=== PATIENT | male | born 2000 | race Caucasian/White ===

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

== ENCOUNTER 2018-04-19 22:18 | Emergency (ER) | payer OTHER ==
[~2018-04-19] VITALS: Ht 167.6 cm; Wt 65.8 kg
--- NOTE | 2018-04-20 00:10 | NUR ---
PT BBSELF FROM HOME C/C OF HEAD/TOOTH PAIN 4/10 X TODAY NON RADIATING W/ DIZZINESS AND NECK STIFFNESS. PT IS AAOX4. SKIN WNL. RESP EVEN AND UNLABORED. NO S/S OF ACUTE DISTRESS NOTED. PT PLACED ON MONITOR AND POX. PT SAFETY IN PLACE. AWAITING MD FOR EVAL.
[2018-04-20] MEDS ORDERED: ACETAMINOPHEN ES 500 MG TABLET PO ONE (00:30)
[2018-04-20] MEDS ORDERED: IV NS 0.9% 1,000 ML BAG IV ONE (00:30)
[2018-04-20] MEDS ORDERED: PENICILLIN V POTASSIUM 500 MG TABLET PO ONE ×2 (00:30→00:31)
[2018-04-20] MEDS ORDERED: ACETAMINOPHEN ES 500 MG TABLET ONE (00:31)
[2018-04-20 00:40] LABS: BASOPHILS % (AUTO) 0.2 % (0.0-2.0); EOSINOPHILS % (AUTO) 0.5 % (0.0-6.0); HEMATOCRIT 51 % (39-51); LYMPHOCYTES % (AUTO) 20.8 % (20.0-44.0); MEAN CORPUSCULAR HEMOGLOBIN 31 PG (26.0-33.0); MEAN CORPUSCULAR HGB CONC 34 g/dl (31.0-36.0); MEAN CORPUSCULAR VOLUME 93 fL (80-96); MONOCYTES # (AUTO) 0.7 /CMM (0.1-1.30); MONOCYTES % (AUTO) 7.1 % (2.0-12.0); NEUTROPHILS # (AUTO) 6.9 /CMM (1.8-8.9); NEUTROPHILS % (AUTO) 71.4 % (43.0-81.0); PLATELET COUNT (AUTO) 147 /CMM (150-450); RDW COEFFICIENT OF VARIATION 13.4 (11.5-15.0); RED BLOOD CELL COUNT(AUTO) 5.47 MIL/uL (4.5-6.0); WHITE BLOOD COUNT (AUTO) 9.7 K/uL (4.3-11.0)
[2018-04-20 00:47] LABS: CALCIUM, SERUM 9.1 mg/dL (8.5-10.1); POTASSIUM 3.2 mmol/L (3.5-5.1)
[2018-04-20 01:47] VITALS: BP 126/80
--- NOTE | 2018-04-20 01:47 | NUR ---
Patient discharged to home in stable condition. Written and verbal after care instructions given. Patient verbalizes understanding of instruction.IV removed. Catheter intact and site benign. Pressure and 4x4 applied to site. No bleeding noted. NO S/S DISTRESS NOTED UPON DISCHARGE
== END 2018-04-20 01:49 | disposition home or self-care (01) ==
LOC: ER 22:20
DX: R55 Syncope and collapse (principal); F41.9 Anxiety disorder, unspecified; R51 Headache; K08.89 Other specified disorders of teeth and supporting structures; F17.200 Nicotine dependence, unspecified, uncomplicated
CPT/HCPCS: 36415; 80048; 85025; 93005; 96360; 99285; 99406; A4606; J7030; Z7610

== ENCOUNTER 2019-06-25 18:24 | Emergency (ER) | payer OTHER ==
[~2019-06-25] VITALS: Ht 165.1 cm; Wt 88.9 kg
--- NOTE | 2019-06-25 18:30 | NUR ---
Pt came into the ed c/o "Chest cold/congestion xcouple weeks today felt nauseous and SO. Pt AAOX4, VSS, BREATHING EVEN AND UNLABORED W/ NO ACUTE DISTRESS NOTED. Pt connected to the monitor.
[2019-06-25] MEDS ORDERED: LORAZEPAM 1 MG TABLET ONE (18:43)
--- NOTE | 2019-06-25 18:53 | NUR ---
PT REFUSED TO TAKE 1 MG ATIVAN TABLET AND ASKED ER , DR. KAPADIA IF HE COULD TAKE 0.5 MG. ATIVAN GIVEN 0.[address]'S ORDER
[2019-06-25] MEDS ORDERED: LORAZEPAM 1 MG TABLET PO ONE (19:00)
[2019-06-25 19:24] VITALS: BP 123/80
--- NOTE | 2019-06-25 19:24 | NUR ---
Patient discharged to home in stable condition. Written and verbal after care instructions given. Patient verbalizes understanding of instruction.
== END 2019-06-25 19:25 | disposition home or self-care (01) ==
LOC: ER 18:24
DX: F41.9 Anxiety disorder, unspecified (principal); F17.200 Nicotine dependence, unspecified, uncomplicated

== ENCOUNTER 2019-08-26 20:46 | Emergency (ER) | payer OTHER ==
[~2019-08-26] VITALS: Ht 167.6 cm; Wt 90.7 kg
[2019-08-26 21:58] VITALS: BP 148/91
== END 2019-08-26 21:58 | disposition home or self-care (01) ==
LOC: ER 20:48
DX: F41.9 Anxiety disorder, unspecified (principal); F17.200 Nicotine dependence, unspecified, uncomplicated

== ENCOUNTER 2020-02-16 04:37 | Emergency (ER) | payer OTHER ==
[~2020-02-16] VITALS: Ht 162.6 cm; Wt 86.2 kg
[2020-02-16 04:44] VITALS: BP 121/75
== END 2020-02-16 05:30 | disposition home or self-care (01) ==
LOC: ER 04:37
DX: R20.2 Paresthesia of skin (principal); M25.532 Pain in left wrist; M25.531 Pain in right wrist

== ENCOUNTER 2020-12-04 15:44 | Emergency (ER) | payer OTHER ==
[~2020-12-04] VITALS: Ht 167.6 cm; Wt 86.2 kg
--- NOTE | 2020-12-04 15:44 | NUR ---
PT BIB SELF C/O BLOOD IN THE STOOL STARTED YESTERDAY. PT IS AAOX4, NOT IN RESPIRATORY DISTRESS, V/S STABLE, KEPT RESTED AND COMFORTABLE. WILL CONTINUE TO MONITOR.
--- NOTE | 2020-12-04 17:27 | NUR ---
HUGH GROSS AT BEDSIDE FOR EVAL.
--- NOTE | 2020-12-04 17:50 | NUR ---
IV LINE ESTABLISHED BLOOD DRAWN AND SENT TO LAB.
[2020-12-04 18:12] LABS: OCCULT BLOOD STOOL NEGATIVE (NEGATIVE)
[2020-12-04 18:13] LABS: BASOPHILS % (AUTO) 0.2 % (0.0-2.0); EOSINOPHILS % (AUTO) 0.2 % (0.0-6.0); HEMATOCRIT 50 % (39-51); HEMOGLOBIN 16.4 g/dL (13.5-17.5); LYMPHOCYTES # (AUTO) 1.7 /CMM (0.8-4.8); LYMPHOCYTES % (AUTO) 18.9 % (20.0-44.0); MEAN CORPUSCULAR HGB CONC 33 g/dl (31.0-36.0); MEAN CORPUSCULAR VOLUME 92 fL (80-96); MONOCYTES # (AUTO) 0.5 /CMM (0.1-1.30); MONOCYTES % (AUTO) 5.5 % (2.0-12.0); NEUTROPHILS # (AUTO) 6.7 /CMM (1.8-8.9); NEUTROPHILS % (AUTO) 75.2 % (43.0-81.0); PLATELET COUNT (AUTO) 188 /CMM (150-450); RED BLOOD CELL COUNT(AUTO) 5.39 MIL/uL (4.5-6.0); WHITE BLOOD COUNT (AUTO) 8.9 K/uL (4.3-11.0)
[2020-12-04] MEDS ORDERED: IOHEXOL-300 100 ML VIAL IV ONE (18:26)
[2020-12-04 18:27] LABS: CALCIUM, SERUM 9.6 mg/dL (8.5-10.1); CREATININE 0.9 mg/dL (0.6-1.3); POTASSIUM 3.8 mmol/L (3.5-5.1)
[2020-12-04] MEDS ORDERED: IV NS 0.9% 250 ML IV ONE (18:27)
[2020-12-04 18:32] LABS: ALBUMIN 4.2 g/dL (3.4-5.0); BILIRUBIN,DIRECT 0.1 mg/dL (0.0-0.2); BILIRUBIN,TOTAL 0.4 mg/dL (0.2-1.0); TOTAL PROTEIN, SERUM 7.9 g/dL (6.4-8.2)
--- NOTE | 2020-12-04 18:50 | NUR ---
PT IS BACK FROM THE CT SCAN.
--- NOTE | 2020-12-04 19:55 | NUR ---
URINE COLLECTED AND SENT TO LAB
[2020-12-04 20:51] LABS: BILIRUBIN,URINE NEGATIVE (NEGATIVE); COLOR,URINE YELLOW (YELLOW); LEUKOCYTE ESTERASE ,URINE NEGATIVE (NEGATIVE); NITRITE, URINE NEGATIVE (NEGATIVE); PROTEIN,URINE NEGATIVE (NEGATIVE); UGLUCOSE NEGATIVE (NEGATIVE); UROBILINOGEN,URINE 0.2 EU/dL (0.2)
[2020-12-04] MEDS ORDERED: HYDR25SU33 RC ×2 (20:57→20:58)
[2020-12-04 21:08] VITALS: BP 121/75
--- NOTE | 2020-12-04 21:08 | NUR ---
Patient discharged to home in stable condition. Written and verbal after care instructions given. Patient verbalizes understanding of instruction. IV removed. Catheter intact and site benign. Pressure and 4x4 applied to site. No bleeding noted.
== END 2020-12-04 21:09 | disposition home or self-care (01) ==
LOC: ER 15:52
DX: K62.5 Hemorrhage of anus and rectum (principal); F41.9 Anxiety disorder, unspecified; F10.10 Alcohol abuse, uncomplicated; F17.200 Nicotine dependence, unspecified, uncomplicated; Y90.9 Presence of alcohol in blood, level not specified; Z85.038 Personal history of other malignant neoplasm of large intestine; Z79.899 Other long term (current) drug therapy
CPT/HCPCS: 36415; 74177; 80048; 80076; 81003; 82272; 83690; 85025; 85652; 85730; 86140; 99285; J7050; Q9967

== ENCOUNTER 2023-02-10 03:01 | Emergency (ER) | payer MEDICAID, OTHER ==
[~2023-02-10] VITALS: Ht 167.6 cm; Wt 81.6 kg
[~2023-02-10 03:01] MED LIST: HYDR25SU33 RC
[2023-02-10] MEDS ORDERED: LIDOCAINE 1%-EPI 1:100,000 20 ML VIAL ONE (03:33)
[2023-02-10] MEDS ORDERED: IBUPROFEN 400 MG TABLET ONE (04:35)
[2023-02-10 04:41] VITALS: BP 142/87
[2023-02-10] MEDS ORDERED: IBUPROFEN 400 MG TABLET PO ONE (05:00)
== END 2023-02-10 04:42 | disposition home or self-care (01) ==
LOC: ER 03:03
DX: S51.811A Laceration without foreign body of right forearm, initial encounter (principal); F41.9 Anxiety disorder, unspecified; F17.200 Nicotine dependence, unspecified, uncomplicated; V19.9XXA Pedal cyclist (driver) (passenger) injured in unspecified traffic accident, initial encounter; Y93.89 Activity, other specified; Y92.89 Other specified places as the place of occurrence of the external cause; Y99.8 Other external cause status
CPT/HCPCS: 99283; 12002; 73090; J3490